=== PATIENT | female | born 1980 | race Hispanic/Latino ===

== ENCOUNTER 2017-08-22 15:42 | Outpatient (CLI) | payer BC, OTHER | END 2017-08-22 15:43 | disposition home or self-care (01) | LOC: LABHHL 15:42 | PROVIDERS: ATTEND Surgery | DX: D05.12 Intraductal carcinoma in situ of left breast (principal) | CPT/HCPCS: 88305; 88361 ==

== ENCOUNTER 2017-09-07 13:45 | Outpatient (CLI) | payer BC ==
--- NOTE | 2017-09-11 11:30 | Magnetic Resonance Report ---
BILATERAL BREAST MRI WITHOUT AND WITH CONTRAST: 09/07/17 13:45:00 CLINICAL: With newly diagnosed left breast cancer. Status post left ultrasound guided needle biopsy by Dr. Cordova on 08/21/17 with pathologic diagnosis of invasive carcinoma NOS. [place] grade II/III. COMPARISON:08/20/17 bilateral mammogram. TECHNIQUE: Axial 1.0-mm T1 without, axial high resolution 2.0-mm T2 and axial 1.0-mm dynamic Vibrant high-resolution postcontrast T1 fat saturation sequences on a 1.5 Pauline magnet. The examination was performed with an 8 channel dedicated [place] breast coil. Post processing with CAD and subtraction was performed on an [employer] workstation. 12.0 cc of Multihance was injected without incident via a right antecubital vein 22-gauge INT for the contrast portion of the exam. Consent was obtained prior to the administration of the contrast. FINDINGS: Right: Mild background parenchymal enhancement. No mass or suspicious enhancement. Numerous benign cysts. The largest cyst measures 3.7 cm. No suspicious right axillary or right internal mammary lymph nodes. Left: Mild background parenchymal enhancement. An irregular enhancing mass at 12 o'clock 8 cm from the nipple measures 3.5 x 3.1 x 2.8 cm. It contains a biopsy clip and corresponds to the known cancer. The mass demonstrates heterogeneous enhancement with mixed kinetics, 123% peak enhancement and 22% type III washout. A second highly suspicious mass contiguous to the known cancer at 11:30 o'clock measures 7 x 6 x 5 mm. It demonstrates heterogeneous enhancement with mixed kinetics, 191% peak enhancement and 21% type III washout. No other mass or suspicious enhancement of the left breast. No suspicious left axillary or left internal mammary lymph nodes. IMPRESSION: 1. Known 3.5 cm left breast cancer. 2. One additional 7 mm highly suspicious mass which is contiguous to the known cancer at 11:30 o'clock. 3. No suspicious lymph nodes. 4. Negative right breast. RIGHT BI-RADS 1 -- Negative LEFT BI-RADS 6 -- Known Cancer
== END 2017-09-07 13:46 | disposition home or self-care (01) ==
LOC: SPVIMAG 13:45
PROVIDERS: ATTEND Surgery
DX: C50.412 Malignant neoplasm of upper-outer quadrant of left female breast (principal); N60.01 Solitary cyst of right breast
CPT/HCPCS: A9577; C8908; 77059

== ENCOUNTER 2017-09-20 12:28 | Outpatient (CLI) | payer BC ==
--- NOTE | 2017-09-21 10:41 | PET Report ---
PET/CT:09/20/17 12:28:00 CLINICAL: - RADIOPHARMACEUTICAL: mCi F18-FDG. COMPARISON: PET/CT TECHNIQUE- Following intravenous injection of F-18 FDG and an approximately 60 minute uptake period, CT and PET images from the mid skull to the upper thighs were acquired with the patient in the fasted state. No contrast was administered. The CT protocol used for this PET CT study is designed for attenuation correction and anatomic localization of PET abnormalities. This cellar packer CT is not desired to produce and cannot replace, mpwfn-op-awc-art diagnostic CT scans with specific imaging protocols for different body parts and indications. Plasma glucose at the time of this test: g/dl. The standardized uptake values (SUV) are normalized to patient body weight and indicate the highest activity concentration (SUV max) in a given disease site. FINDINGS: Brain--Physiologic FDG uptake in the visualized regions of the brain. Neck--Physiologic FDG uptake . Chest--Physiologic FDG uptake in mediastinal blood pool and myocardium. An FDG avid left breast mass with SUV 6.5. The margins of the mass are obscured on the CT. Although two contiguous masses were identified on MRI, there is only one identifiable mass on this study. Lungs--No abnormal uptake. No pulmonary nodule or mass. Pleura/pericardium--No abnormal uptake. Thoracic nodes--No abnormal uptake. Hepatobiliary--No abnormal uptake. Liver background SUV mean, as a reference for comparing FDG studies, is 2.2 . No liver mass. Spleen--No abnormal uptake. Pancreas--No abnormal uptake. Adrenal Glands--No abnormal uptake. Kidneys/Ureters/Bladder--No abnormal uptake. Abdominopelvic Nodes--No abnormal uptake. Bowel/Peritoneum/Mesentery--No abnormal uptake. Pelvic organs--No abnormal uptake. Bones/Soft Tissues--An FDG avid 8mm lucent lesion of the posterior left iliac bone with SUV 4.9. no other bone lesions. IMPRESSION- 1. Newly diagnosed FDG avid left breast cancer with a single left breast mass identified on this study. 2. A single 8mm FDG avid lesion of the left iliac bone is suspicious for a lytic metastasis and would be amenable to CT-guided percutaneous needle biopsy. 3. No evidence of dick, pulmonary or hepatic metastasis.
== END 2017-09-20 12:29 | disposition home or self-care (01) ==
LOC: PET 12:28
PROVIDERS: ATTEND Internal Medicine Hematology & Oncology
DX: C50.412 Malignant neoplasm of upper-outer quadrant of left female breast (principal); M89.9 Disorder of bone, unspecified; Z79.899 Other long term (current) drug therapy
CPT/HCPCS: 78815; 82962; A9552

== ENCOUNTER 2017-09-25 06:32 | Day surgery (SDC) | payer BC ==
[2017-09-25] MEDS ORDERED: ZOFRAN ONE (07:24)
[2017-09-25] MEDS ORDERED: ZOFRAN IV ONE (07:27)
[2017-09-25 07:31] LABS: Hematocrit 42.4 % (30.3-42.9); Hemoglobin 13.9 gm/dl (10.1-14.3); Mean Corpuscular HGB Conc 33 % (30-34); Mean Corpuscular Hemoglobin 31 pg (28-32); Mean Corpuscular Volume 95 fl (79-97); Red Blood Count 4.47 M/mm3 (3.65-5.03); Red Cell Distribution Width 12.5 % (13.2-15.2)
[2017-09-25 07:41] LABS: INR 0.89 (0.87-1.13); Partial Thromboplastin Time 27.8 Sec. (24.2-36.6)
[2017-09-25 09:09] LABS: Total Cells Counted 100
[2017-09-25 09:10] LABS: Basophils % (Manual) 0 % (0.0-1.8); Eosinophils % (Manual) 0 % (0.0-4.3); RBC Morphology Normal
[2017-09-25 09:12] LABS: Platelet Clumps 3+; Platelet Estimate Appears Decreased
[2017-09-25 09:16] LABS: Platelet Count TNR K/mm3 (140-440)
[2017-09-25] MEDS ORDERED: VERSED IV ONE ×2 (09:58→11:12)
[2017-09-25] MEDS ORDERED: SUBLIMAZE ONE (09:59)
[2017-09-25] MEDS ORDERED: SUBLIMAZE IV ONE (11:00)
[2017-09-25] MEDS ORDERED: BENADRYL IV ONE (11:00)
--- NOTE | 2017-09-25 12:31 | Cat Scan Report ---
CT BIOPSY BONE DEEP HISTORY: Breast cancer, left iliac bone lesion. DESCRIPTION OF PROCEDURE: Informed consent was obtained. Sterile technique was utilized. Moderate sedation was accomplished with Versed, fentanyl and Benadryl. The patient was sedated for 20 minutes. Independent cardiorespiratory monitoring by RN. Intraobserver time of [address] guidance, a 10-gauge introducer needle was advanced to the leading edge of a subtle 11 mm lytic lesion in the left posterior iliac bone. One fine needle aspiration and one 11-gauge bone core were obtained. The pathologist was present to evaluate the sample. No complications. IMPRESSION: Successful CT-guided biopsy of the 11 mm lytic lesion in the left posterior iliac bone.
[2017-09-25 12:36] VITALS: BP 107/67
== END 2017-09-25 13:00 | disposition home or self-care (01) ==
LOC: CATHLABREC 06:32 → EDSTATUS 08:30 → CATHLABREC 13:00
PROVIDERS: ATTEND Surgery
DX: C79.51 Secondary malignant neoplasm of bone (principal); C50.919 Malignant neoplasm of unspecified site of unspecified female breast; Z17.0 Estrogen receptor positive status [ER+]; Z79.01 Long term (current) use of anticoagulants
CPT/HCPCS: 20225; 36415; 77012; 85007; 85025; 85610; 85730; 88172; 88173; 88305; 88311; 88341; 88342; 88361; J2250; J2405; J3010; 88307

== ENCOUNTER 2017-09-28 05:50 | Day surgery (SDC) | payer BC ==
[~2017-09-28 05:50] MED LIST: HEPARIN IV ONE; NACL 0.9% IR ONE; NACL 0.9% IV ONE; XYLOCAINE 1% 20 mL INFILTRATI ONE
[2017-09-28] MEDS ORDERED: NACL BACTERIOSTATIC INFILTRATI ONE (06:26)
[2017-09-28] MEDS ORDERED: XYLOCAINE 1% 20 mL ONE (06:48)
[2017-09-28] MEDS ORDERED: HEPARIN 10,000 UNITS/10 ML ONE (06:48)
[2017-09-28] MEDS ORDERED: NACL 0.9% 100 ML ONE (06:48)
[2017-09-28] MEDS ORDERED: ANCEF/STERILE WATER 2 GM/20 ML IV NR (07:00)
[2017-09-28] MEDS ORDERED: TRANSDERM-SCOP TD ONE (07:38)
[2017-09-28] MEDS ORDERED: NACL 0.9% 1000 ML 1,000 ML ONE (07:38)
--- NOTE | 2017-09-28 07:42 | Event Note ---
Date: 09/28/17 Met patient and in pre-op. Explained procedure, risks, and benefits. consent obtained. Side marked. H&P reviewed beforehand and no changes noted. Proceed with surgery today
--- NOTE | 2017-09-28 07:47 | Anesthesia Day of Surgery ---
Anesthesia Day of Surgery - Day of Surgery Patient Examined: Yes Patient H&P Reviewed: Yes Patient is NPO: Yes
[2017-09-28] MEDS ORDERED: DIPRIVAN 10 MG/ML IV ONE (07:48)
[2017-09-28] MEDS ORDERED: ZOFRAN ONE (07:49)
[2017-09-28] MEDS ORDERED: DILAUDID IV PRN (07:49)
[2017-09-28] MEDS ORDERED: DECADRON ONE (07:49)
[2017-09-28] MEDS ORDERED: ZOFRAN IV PRN (07:49)
[2017-09-28] MEDS ORDERED: XYLOCAINE MPF 2% ONE (07:49)
--- NOTE | 2017-09-28 07:49 | Anesthesia Consultation ---
Anesthesia Consult and Med Hx Date of service: 09/28/17 - Airway Anesthetic Teeth Evaluation: Caps, Crowns (with right upper incisor implant) ROM Head & Neck: Adequate Mental/Hyoid Distance: Adequate Mallampati Class: Class I Intubation Access Assessment: Probably Good - Pulmonary Exam CTA: Yes - Cardiac Exam Cardiac Exam: RRR - Pre-Operative Health Status ASA Pre-Surgery Classification: ASA3 Proposed Anesthetic Plan: General - Pre-Anesthesia Comment Pre-Anesthesia Comments: PONV - Pulmonary Hx Smoking: No (quit 8 yrs ago) Hx Sleep Apnea: No - Central Nervous System Hx Psychiatric Problems: Yes (ADD, anxiety d/o) - Other Systems Hx Cancer: Yes (left breast ) - Additional Comments Anesthesia Medical History Comments: PONV, s/p thyroid mass resection
[2017-09-28] MEDS ORDERED: NACL 0.9% 1000 ML 1,000 ML IV SCH (08:00)
[2017-09-28] MEDS ORDERED: VERSED IV PRN (08:00)
[2017-09-28] MEDS ORDERED: TRANSDERM-SCOP TD NR (08:00)
[2017-09-28] MEDS ORDERED: PEPCID IV NR (08:00)
[2017-09-28] MEDS ORDERED: NACL ONE (08:10)
[2017-09-28] MEDS ORDERED: TORADOL ONE (08:20)
--- NOTE | 2017-09-28 09:12 | Short Stay Summary ---
Short Stay Documentation Date of service: 09/28/17 - History Principal diagnosis: Left breast cancer H&P: obtained from office - Allergies and Medications Current Medications: Allergies iodine Allergy (Verified 09/25/17 16:39) Vomiting,hives Home Medications Medication Instructions Recorded Confirmed Last Taken Type Dextroamphetamine/Amphetamine 20 mg PO QDAY 09/25/17 09/28/17 09/24/17 12:00 History [Adderall 20 mg Tablet] RX: ALPRAZolam [Xanax TAB] 0.25 mg PO QDAY PRN 09/25/17 09/28/17 09/27/17 21:30 History Active Medications Cefazolin Sodium (Ancef/Sterile Water 2 Gm/20 Ml) 2 gm IV PREOP NR Stop: 09/28/17 23:59 Famotidine (Pepcid) 20 mg IV PREOP NR Stop: 09/28/17 13:00 Hydromorphone HCl (Dilaudid) 0.5 mg IV Q10MIN PRN PRN Reason: Pain , Severe (7-10) Stop: 09/28/17 18:00 Sodium Chloride (Nacl 0.9% 1000 Ml) 1,000 mls @ 42 mls/hr IV DIRECT LONI Stop: 09/28/17 23:00 Midazolam HCl (Versed) 2 mg IV PREOP PRN PRN Reason: Agitation Stop: 09/28/17 12:00 Ondansetron HCl (Zofran) 4 mg IV ONCE PRN PRN Reason: Nausea And Vomiting Stop: 09/28/17 12:00 Scopolamine (Transderm-Scop) 1 each TD PREOP NR Stop: 09/28/17 18:00 - Brief post op/procedure progress note Date of procedure: 09/28/17 Pre-op diagnosis: Left breast cancer Post-op diagnosis: same Procedure: Ultrasound guided port-a-cath placement Anesthesia: GETA Findings: normal vascular anatomy Surgeon: KURTIS NEWMAN Estimated blood loss: minimal Pathology: none Condition: stable - Hospital course Hospital course: uneventful out-pt procedure. no complications identified in OR/PACU - Disposition Condition at discharge: Stable Disposition: DC- TO HOME OR SELFCARE - Discharge Diagnoses (1) Breast cancer Status: Acute Qualifiers: Patient sex: female Laterality: left Short Stay Discharge Plan Activity: advance as tolerated, other (no strenuous activity with right arm. No heavy lifting with right arm) Diet: regular Wound: keep clean and dry, other (May shower tomorrow. Pat dry wounds) Special Instructions: no heavy lifting, other (Apply ice to right upper chest 3- 4 times a day for 15minutes at a time. Do this for 1 week. May use mild heat after that. May use port immediately) Additional Instructions: may use tylenol and/or ibuprofen for any pain. please follow instructions on bottle. Please call for any questions. Follow up with: IGOR SEGURA [Other] - 7 Days Prescriptions: Ondansetron [Zofran Odt] 4 mg PO Q8HR #10 tab.ananddis
--- NOTE | 2017-09-28 09:13 | Fluoroscopy Report ---
FLUOROSCOPY CENTRAL VENOUS CATHETER PLACEMENT INDICATION: Breast cancer, Otkgus-z-Accd insertion. COMPARISON: None similar. FINDINGS: Portable, frontal chest radiograph and one intraoperative fluoroscopic image submitted. Chest radiograph demonstrates a right subclavian port with its tip approximately 3 cm below the cavoatrial junction. Normal cardiomediastinal silhouette. Clear lungs. Intact bones. CONCLUSION: Right subclavian port placement, as above. Thank you for the opportunity to participate in this patient's care.
--- NOTE | 2017-09-28 09:29 | Operative Report ---
Operative Report Operative Report: Operative note Date of procedure is 09/28/2017 Date of dictation 09/28/2017 Preoperative diagnosis - left breast cancer Postoperative diagnosis - same Procedure-ultrasound guided Port-a-cath placement into right subclavian vein Surgeon-Kev Maharaj M.D. Anesthesia - GETA EBL - minimal Findings - normal vascular anatomy Specimens - none Complications - none Stable transport to PACU Indications- This is a 29 year old female with recent diagnosis of left breast cancer. She was assessed to be need for chemotherapy and requested been made for port-a- cath placement. Procedures, risks, benefits were explained to patient. All questions were answered. Consent was obtained. Procedure- Patient was brought to the operating room and placed on the table in supine position. 2 g of ancef had been administered prior to start of the case and SCDs were in place. I begin by assessing the anatomy of ultrasound. Sterile prep and drape had been done subsequently. I used 1% lidocaine to anesthetize the planned vascular access site. This was done under ultrasound guidance. Under ultrasound guidance I was able to access the subclavian vein on the 1st stick. Guide wire was easily placed. Position was confirmed with fluoroscopy. I then proceeded to create the pocket for the port. The area was anesthetized. Oblique incision was made approximately the size of the port. Pocket was created. Port was snug in its position. I then tunneled catheter to the vascular insertion site. She was introduced over the wire and catheter was then fed into the subclavian vein. Fluoroscopy confirm good position. The end was approximately 2 vertebral bodies below the dylan. We then trimmed the catheter to 23 cm and attached to the port. It was inserted into the pocket. We had good aspiration and flushing with 10 mL of normal saline. We then locked the port with one cc of heparin (1000 units per cc) and 4 mL of normal saline. There was no active bleeding. Everything looked good. We confirmed a final position with fluoroscopy. I was unable to place proline sutures to secure the port due to the small pocket. I close the dermis with interrupted 3- 0 vicryl sutures. Skin was closed with 4-0 monocryl subcuticular stitches. Skin was clean and dry and dermabond was placed. Postoperative chest x-ray showed catheter in good position and no evidence of pneumothorax. I spoke with the after surgery by phone. I told him how things went. All counts were correct at the end of the case. Kev Maharaj MD
[2017-09-28 10:49] VITALS: BP 122/78
--- NOTE | 2017-09-28 13:28 | Post Anesthesia Evaluation ---
- Post Anesthesia Evaluation Patient Participated: Yes Airway Patent: Yes Stable Respiratory Function: Yes Nausea/Vomiting: No Temp > 96.8F: Yes Pain Manageable: Yes Adequeate Hydration: Yes Anesthesia Complications: No Block Receding Appropriately: Not Applicable Patient on Ventilator: No
--- NOTE | 2017-10-01 09:57 | Event Note ---
Date: 10/01/17 Called patient today to see how she was doing. Reports that overall, she is well. She just has soreness in the area of the surgery. No other problems. Does not need anything. Currently at the oncologist's office. Offered that she could call if she needs anything. Pt was appreciative.
== END 2017-09-28 10:35 | disposition home or self-care (01) ==
LOC: OR 05:50
PROVIDERS: ATTEND Surgery
DX: C50.412 Malignant neoplasm of upper-outer quadrant of left female breast (principal); F98.8 Other specified behavioral and emotional disorders with onset usually occurring in childhood and adolescence; F41.9 Anxiety disorder, unspecified; Z87.891 Personal history of nicotine dependence; Z91.041 Radiographic dye allergy status
CPT/HCPCS: 36561; 77001; 81025; C1788; J0690; J1100; J1644; J1885; J2250; J2405; J2704; J7030

== ENCOUNTER 2017-12-27 07:19 | Outpatient (CLI) | payer BC ==
--- NOTE | 2017-12-27 11:04 | PET Report ---
PET/CT:12/27/17 07:19:00 CLINICAL: Followup left breast cancer with a biopsy proven left iliac bone metastasis. RADIOPHARMACEUTICAL: 14.9mCi F18-FDG. COMPARISON: 09/20/17 PET/CT TECHNIQUE- Following intravenous injection of F-18 FDG and an approximately 60 minute uptake period, CT and PET images from the mid skull to the upper thighs were acquired with the patient in the fasted state. No contrast was administered. The CT protocol used for this PET CT study is designed for attenuation correction and anatomic localization of PET abnormalities. This women's health care nurse practitioner CT is not desired to produce and cannot replace, ttwdn-fi-moh-art diagnostic CT scans with specific imaging protocols for different body parts and indications. Plasma glucose at the time of this test: 109g/dl. The standardized uptake values (SUV) are normalized to patient body weight and indicate the highest activity concentration (SUV max) in a given disease site. FINDINGS: Brain--Physiologic FDG uptake in the visualized regions of the brain. Neck--Physiologic FDG uptake . Chest--Physiologic FDG uptake in mediastinal blood pool and myocardium. The previously described FDG avid left breast mass demonstrates decreased FDG uptake with SUV 3.0 compared to 6.5 on the last exam. Margins of the mass are obscured. Lungs--No abnormal uptake. No pulmonary nodule or mass. Pleura/pericardium--No abnormal uptake. Thoracic nodes--No abnormal uptake. Hepatobiliary--No abnormal uptake. Liver background SUV mean, as a reference for comparing FDG studies, is 2.8 compared to 2.4 on the last exam. No liver mass. Spleen--No abnormal uptake. Pancreas--No abnormal uptake. Adrenal Glands--No abnormal uptake. Kidneys/Ureters/Bladder--No abnormal uptake. Abdominopelvic Nodes--No abnormal uptake. Bowel/Peritoneum/Mesentery--No abnormal uptake. Pelvic organs--No abnormal uptake. Bones/Soft Tissues--No abnormal uptake. Resolution of FDG uptake in the left iliac bone. Minimal residual lucency and new sclerotic change at the site of the previously described lesion. No other bone lesions. IMPRESSION- A partial response to treatment with decreased FDG uptake in the left breast cancer and resolution of FDG uptake in the biopsy proven left iliac bone metastasis. No new lesions.
== END 2017-12-27 07:20 | disposition home or self-care (01) ==
LOC: PET 07:19
PROVIDERS: ATTEND Internal Medicine Hematology & Oncology
DX: C79.51 Secondary malignant neoplasm of bone (principal); C50.412 Malignant neoplasm of upper-outer quadrant of left female breast; D70.9 Neutropenia, unspecified; Z79.899 Other long term (current) drug therapy; Z87.891 Personal history of nicotine dependence
CPT/HCPCS: 78815; 82962; A9552

== ENCOUNTER 2018-05-09 11:57 | Outpatient (CLI) | payer BC ==
--- NOTE | 2018-05-15 08:56 | PET Report ---
PET/CT:05/09/18 11:57:00 CLINICAL: Breast cancer restaging. RADIOPHARMACEUTICAL: 14.9mCi F18-FDG. COMPARISON: 12/27/17 PET/CT TECHNIQUE- Following intravenous injection of F-18 FDG and an approximately 60 minute uptake period, CT and PET images from the mid skull to the upper thighs were acquired with the patient in the fasted state. No contrast was administered. The CT protocol used for this PET CT study is designed for attenuation correction and anatomic localization of PET abnormalities. This triple valve tester CT is not desired to produce and cannot replace, gdxwo-gn-xpf-art diagnostic CT scans with specific imaging protocols for different body parts and indications. Plasma glucose at the time of this test: 109g/dl. The standardized uptake values (SUV) are normalized to patient body weight and indicate the highest activity concentration (SUV max) in a given disease site. FINDINGS: Brain--Physiologic FDG uptake in the visualized regions of the brain. Neck--Physiologic FDG uptake in mucosal structures. No mass or lymphadenopathy. Chest--Physiologic FDG uptake in mediastinal blood pool and myocardium. The previously described FDG avid left breast mass has been surgically excised and there is a postop seroma measuring 5.5 x 4.1 cm. Lungs--No abnormal uptake. No pulmonary nodule or mass. Pleura/pericardium--No abnormal uptake. Thoracic nodes--Interval development of bilateral FDG avid hilar and mediastinal lymphadenopathy. The largest lymph node is a right hilar lymph node measuring 1.8 x 1.5 cm with SUV 11.9. The greatest FDG uptake is in a left hilar lymph node with SUV 14.8. An FDG avid AP window lymph node with SUV 8.7. No axillary or internal mammary lymphadenopathy. Hepatobiliary--No abnormal uptake. Liver background SUV mean, as a reference for comparing FDG studies, is 3.9 compared to 2.5 on the last exam. No liver mass. Spleen--No abnormal uptake. Pancreas--No abnormal uptake. Adrenal Glands--No abnormal uptake. Kidneys/Ureters/Bladder--No abnormal uptake. Abdominopelvic Nodes--No abnormal uptake. Bowel/Peritoneum/Mesentery--No abnormal uptake. Pelvic organs--No abnormal uptake. Bones/Soft Tissues--No abnormal uptake. FDG uptake has resolved in the previously described left iliac lesion. There is increased sclerosis at the lesion. No new bone lesions. IMPRESSION-1. Interval development of FDG avid bilateral hilar and mediastinal lymphadenopathy. Although nonspecific, the intensity of the FDG uptake suggests that it may be related to an infectious or inflammatory process rather than metastatic disease. 2. No evidence of pulmonary, hepatic or new skeletal metastasis. 3. Resolution of FDG uptake and increased sclerotic treatment response in the left iliac metastasis. 4. A 5.5 cm postop seroma of the left breast.
== END 2018-05-09 11:58 | disposition home or self-care (01) ==
LOC: PET 11:57
PROVIDERS: ATTEND Internal Medicine Hematology & Oncology
DX: C50.412 Malignant neoplasm of upper-outer quadrant of left female breast (principal); K21.9 Gastro-esophageal reflux disease without esophagitis; Z87.891 Personal history of nicotine dependence; Z90.89 Acquired absence of other organs; Z91.041 Radiographic dye allergy status
CPT/HCPCS: 78815; A9552; 82962

== ENCOUNTER 2018-05-30 15:04 | Outpatient (CLI) | payer BC ==
--- NOTE | 2018-05-31 08:00 | Magnetic Resonance Report ---
MRI BRAIN WITH/WITHOUT CONTRAST: History: Malignant neoplasm of upper outer left breast. Technique: Multiple T1 and T2 weighted images were obtained in multiple planes. Axial diffusion and gradient imaging was performed. Post contrast T1 images in two planes were obtained following IV gadolinium. Findings: The brain parenchyma signal intensity and its poe-white interface are normal on all sequences. No abnormal parenchymal signal. No diffusion restriction, hemorrhage, mass effect or extra-axial fluid collection. Ventricular size is normal and symmetric. The basal cisterns are clear. The brainstem and cerebellar hemispheres are within normal limits. The fourth ventricle is midline. The paranasal sinuses and mastoid air cells are well aerated. Normal flow voids are identified in the appropriate vessels at the [place]. No abnormal enhancement is identified following IV gadolinium. Impression: No evidence for metastatic disease to the brain. Unremarkable MRI brain with and without contrast.
== END 2018-05-30 15:05 | disposition home or self-care (01) ==
LOC: MRI 15:04
PROVIDERS: ATTEND Internal Medicine Hematology & Oncology
DX: C50.412 Malignant neoplasm of upper-outer quadrant of left female breast (principal); K21.9 Gastro-esophageal reflux disease without esophagitis; Z87.891 Personal history of nicotine dependence; Z90.89 Acquired absence of other organs
CPT/HCPCS: 70553; A9577

== ENCOUNTER 2018-09-26 07:43 | Outpatient (CLI) | payer BC ==
--- NOTE | 2018-09-26 13:04 | PET Report ---
PET/CT:09/26/18 07:43:00 CLINICAL: Breast cancer restaging. RADIOPHARMACEUTICAL: 13.301mCi F18-FDG. COMPARISON: 05/09/18 PET/CT TECHNIQUE- Following intravenous injection of F-18 FDG and an approximately 60 minute uptake period, CT and PET images from the mid skull to the upper thighs were acquired with the patient in the fasted state. No contrast was administered. The CT protocol used for this PET CT study is designed for attenuation correction and anatomic localization of PET abnormalities. This pocket and pulley machine operator CT is not desired to produce and cannot replace, zploj-ou-qyz-art diagnostic CT scans with specific imaging protocols for different body parts and indications. Plasma glucose at the time of this test: 96g/dl. The standardized uptake values (SUV) are normalized to patient body weight and indicate the highest activity concentration (SUV max) in a given disease site. FINDINGS: Brain--Physiologic FDG uptake in the visualized regions of the brain. Neck--Physiologic FDG uptake in mucosal structures. No mass or lymphadenopathy. Chest--Physiologic FDG uptake in mediastinal blood pool and myocardium. Status post left partial mastectomy with a 2.5 cm postop seroma. Lungs--No abnormal uptake. No pulmonary nodule or mass. Pleura/pericardium--No abnormal uptake. Thoracic nodes--No abnormal uptake. Bilateral hilar FDG uptake has resolved. Hepatobiliary--No abnormal uptake. Liver background SUV mean, as a reference for comparing FDG studies, is 3.2 compared to 3.9 on the last exam. No liver mass. Spleen--No abnormal uptake. Pancreas--No abnormal uptake. Adrenal Glands--No abnormal uptake. Kidneys/Ureters/Bladder--No abnormal uptake. Abdominopelvic Nodes--No abnormal uptake. Bowel/Peritoneum/Mesentery--No abnormal uptake. Pelvic organs--No abnormal uptake. Mild physiologic uptake in the right ovary SUV 4.1. Bones/Soft Tissues--No abnormal uptake and no suspicious bone lesion. Stable left posterior iliac lesion with a sclerotic treatment response. IMPRESSION- 1. Resolution of bilateral benign FDG avid hilar lymphadenopathy. 2. No evidence of pulmonary, hepatic or new skeletal metastasis. 3. A stable non-FDG avid sclerotic lesion of the posterior left iliac bone.
== END 2018-09-26 07:44 | disposition home or self-care (01) ==
LOC: PET 07:43
PROVIDERS: ATTEND Internal Medicine Hematology & Oncology
DX: R59.1 Generalized enlarged lymph nodes (principal); K21.9 Gastro-esophageal reflux disease without esophagitis; Z87.891 Personal history of nicotine dependence
CPT/HCPCS: 78815; 82962; A9552

== ENCOUNTER 2019-02-13 12:00 | Outpatient (CLI) | payer BC ==
--- NOTE | 2019-02-14 10:25 | PET Report ---
PET/CT:02/13/19 12:00:00 CLINICAL: Breast cancer restaging. RADIOPHARMACEUTICAL: 14.73mCi F18-FDG. COMPARISON: 09/26/18 PET/CT TECHNIQUE- Following intravenous injection of F-18 FDG and an approximately 60 minute uptake period, CT and PET images from the mid skull to the upper thighs were acquired with the patient in the fasted state. No contrast was administered. The CT protocol used for this PET CT study is designed for attenuation correction and anatomic localization of PET abnormalities. This head loft worker CT is not desired to produce and cannot replace, icsnw-hs-tfq-art diagnostic CT scans with specific imaging protocols for different body parts and indications. Plasma glucose at the time of this test: 100g/dl. The standardized uptake values (SUV) are normalized to patient body weight and indicate the highest activity concentration (SUV max) in a given disease site. FINDINGS: Brain--Physiologic FDG uptake in the visualized regions of the brain. Neck--Physiologic FDG uptake . Chest--Physiologic FDG uptake in mediastinal blood pool and myocardium. Status post left partial mastectomy with a stable 2.5 cm seroma. Lungs--No abnormal uptake. No pulmonary nodule or mass. Pleura/pericardium--No abnormal uptake. Thoracic nodes--No lymphadenopathy and no abnormal uptake. Hepatobiliary--No abnormal uptake. Liver background SUV mean, as a reference for comparing FDG studies, is 3.7 compared to 3.3 on the last exam. No liver mass. Spleen--No abnormal uptake. Pancreas--No abnormal uptake. Adrenal Glands--No abnormal uptake. Kidneys/Ureters/Bladder--No abnormal uptake. Abdominopelvic Nodes--No abnormal uptake. Bowel/Peritoneum/Mesentery--No abnormal uptake. Pelvic organs--No abnormal uptake. Bones/Soft Tissues--No abnormal uptake and no new bone lesion. Stable non-FDG avid sclerotic lesion of the posterior left iliac bone. IMPRESSION- Stable non-FDG avid left iliac bone lesion with a sclerotic treatment response. No new disease.
== END 2019-02-13 12:01 | disposition home or self-care (01) ==
LOC: PET 12:00
PROVIDERS: ATTEND Internal Medicine Hematology & Oncology
DX: C50.412 Malignant neoplasm of upper-outer quadrant of left female breast (principal); K21.9 Gastro-esophageal reflux disease without esophagitis
CPT/HCPCS: 78815; 82962; A9552

== ENCOUNTER 2019-06-26 11:18 | Outpatient (CLI) | payer BC ==
--- NOTE | 2019-06-26 16:18 | PET Report ---
PET/CT HISTORY: C50.412. Restaging of left breast cancer TECHNIQUE: The patient's fasting blood glucose was 112. The patient weighed 145 lbs. The patient w as injected with 16.0 mCi of FDG in the right antecubital fossa at 1155 and imaging was started at 13 05. The patient was imaged from the skull base to the thighs. All CT scans at this location are perf ormed using CT dose reduction for ALARA by means of automated exposure control. Images were reviewed on a workstation. COMPARISON: 02/13/2019 FINDINGS: IMAGED BRAIN: [Physiologic FDG uptake] NECK: [Physiologic FDG uptake] CHEST WALL: [Physiologic FDG uptake]. Focal scarring measuring 2.1 cm in the superior left breast is identified which appears to represent the surgical site. Max SUV in this area measures 2.2. MEDIASTINUM: [Physiologic FDG uptake] LUNGS: [Physiologic FDG uptake] HEPATOBILIARY: [Physiologic FDG uptake]. Liver SUV measures 3.4. PANCREAS: [Physiologic FDG uptake SPLEEN: [Physiologic FDG uptake] KIDNEYS/BLADDER: [Physiologic FDG uptake] ADRENAL GLANDS: [Physiologic FDG uptake] GI/MESENTERY: [Physiologic FDG uptake] PELVIC VISCERA: [Physiologic FDG uptake] LYMPH NODES: [Physiologic FDG uptake] OSSEOUS STRUCTURES: [Physiologic FDG uptake]. Stable sclerotic lesion in the left posterior iliac vega ne. No suspicious bony lesion. ADDITIONAL FINDINGS: [None] IMPRESSION: Negative PET CT Signer Name: Brayan Sweet Jr, MD Signed: 06/26/2019 4:14 PM Workstation Name: [id number]
== END 2019-06-26 11:19 | disposition home or self-care (01) ==
LOC: PET 11:18
PROVIDERS: ATTEND Internal Medicine Hematology & Oncology
DX: C50.412 Malignant neoplasm of upper-outer quadrant of left female breast (principal); K21.9 Gastro-esophageal reflux disease without esophagitis; Z87.891 Personal history of nicotine dependence
CPT/HCPCS: 78815; 82962; A9552

== ENCOUNTER 2019-10-30 08:22 | Outpatient (CLI) | payer BC ==
--- NOTE | 2019-10-31 11:02 | PET Report ---
PET/CT HISTORY: C50.412. Restaging of left breast cancer TECHNIQUE: The patient's fasting blood glucose was 96. The patient weighed 135 lbs. The patient wa s injected with 12.8 mCi of FDG in the right arm at 0923 hours and imaging was started at 1012 hours. The patient was imaged from the skull base to the thighs. All CT scans at this location are perform ed using CT dose reduction for ALARA by means of automated exposure control. Images were reviewed on a workstation. COMPARISON: 06/26/2019 FINDINGS: IMAGED BRAIN: [Physiologic FDG uptake] NECK: [Physiologic FDG uptake] CHEST WALL: [Physiologic FDG uptake]. Stable scarring in the superior left breast surgical site. No recurrent breast or chest wall mass. MEDIASTINUM: [Physiologic FDG uptake] LUNGS: [Physiologic FDG uptake] HEPATOBILIARY: [Physiologic FDG uptake]. Liver SUV measures 4.0. PANCREAS: [Physiologic FDG uptake SPLEEN: [Physiologic FDG uptake] KIDNEYS/BLADDER: [Physiologic FDG uptake] ADRENAL GLANDS: [Physiologic FDG uptake] GI/MESENTERY: [Physiologic FDG uptake] PELVIC VISCERA: [Physiologic FDG uptake] LYMPH NODES: [Physiologic FDG uptake] OSSEOUS STRUCTURES: [Physiologic FDG uptake] ADDITIONAL FINDINGS: [None] IMPRESSION: Stable findings since 06/26/2019 exam. No evidence for recurrent or metastatic disease Signer Name: Brayan Sweet Jr, MD Signed: 10/31/2019 10:58 AM Workstation Name: [id number]
== END 2019-10-30 08:23 | disposition home or self-care (01) ==
LOC: PET 08:22
PROVIDERS: ATTEND Internal Medicine Hematology & Oncology
DX: C50.412 Malignant neoplasm of upper-outer quadrant of left female breast (principal)
CPT/HCPCS: 78815; 82962; A9552

== ENCOUNTER 2020-05-06 07:41 | Outpatient (CLI) | payer BC ==
--- NOTE | 2020-05-06 12:39 | PET Report ---
PET sb to mt subsequent INDICATION / CLINICAL INFORMATION: Restaging breast cancer.. TRACER: F-18 FDG 14.06 mCi IV injection at 8:10 AM on 05/06/2020. Blood glucose is 107 mg/dL. TECHNIQUE: Following injection of the above tracer and appropriate delay, PET imaging was performed from the [facility] ll base to the upper thighs. CT imaging was performed the same time for the purposes of anatomic loca lization. All CT scans at this location are performed using CT dose reduction for ALARA by means of a utomated exposure control. COMPARISON: 10/30/2019. FINDINGS: HEAD/NECK: No abnormal uptake. CHEST: No abnormal uptake involving the left sixth rib laterally with maximal SUV of 3.4. Mild cortical irre gularity is seen medially. ABDOMEN/PELVIS: No abnormal uptake. UPPER LEGS: No abnormal uptake. INCIDENTAL CT FINDINGS: No new CT abnormality. IMPRESSION: New uptake left sixth rib laterally with underlying cortical irregularity worrisome for m etastatic disease. Signer Name: Alfred Chester MD Signed: 05/06/2020 12:34 PM Workstation Name: [id number]
== END 2020-05-06 07:42 | disposition home or self-care (01) ==
LOC: PET 07:41
PROVIDERS: ATTEND Internal Medicine Hematology & Oncology
DX: C79.51 Secondary malignant neoplasm of bone (principal); C50.412 Malignant neoplasm of upper-outer quadrant of left female breast
CPT/HCPCS: 78815; 82962; A9552